=== PATIENT | female | born 1995 | race Two or more races ===

== ENCOUNTER → 2023-08-17 | Outpatient (CLI) | payer MEDICAID ==
[2023-08-17 13:26] LABS: Amphetamine Screen, Urine Neg (NEGATIVE); Barbiturate Scree,Urine Neg (NEGATIVE); Benzodiazephine Screen, Urine Neg (NEGATIVE); Cannabinoid Screen, Urine Neg (NEGATIVE); Cocaine Screen, Urine Neg (NEGATIVE); Opiate Scree,Urine Neg (NEGATIVE); Phencyclidine Screen, Urine Neg (NEGATIVE)
== END | disposition home or self-care (01) ==
LOC: LAB 12:18
PROVIDERS: ATTEND Obstetrics & Gynecology
DX: Z34.80 Encounter for supervision of other normal pregnancy, unspecified trimester (principal); Z3A.00 Weeks of gestation of pregnancy not specified
CPT/HCPCS: 80307

== ENCOUNTER → 2023-10-12 | Outpatient (CLI) | payer MEDICAID ==
[2023-10-12 08:49] LABS: Basophils # (auto) 0 10 ^3/uL (0-0.2); Basophils % (auto) 0.7 % (0.0-2.0); Eosinophils # (auto) 0.2 10 ^3/uL (0-0.8); Eosinophils % (auto) 3.3 % (0.0-7.0); Hemoglobin 12.5 g/dL (12.2-16.2); Lymphocytes # (auto) 1.6 10 ^3/uL (0.4-5.4); Lymphocytes % (auto) 24.1 % (10.0-50.0); Mean Corpuscular Hemoglobin 32.2 pg (28.0-32.0); Mean Corpuscular Hgb Conc. 34.6 g/dL (32.0-36.0); Mean Corpuscular Volume 92.9 fL (80.0-100.0); Monocytes # (auto) 0.6 10 ^3/uL (0-1.3); Monocytes % (auto) 9.4 % (0.0-12.0); Neutrophils # (auto) 4.2 10 ^3/uL (1.6-8.6); Neutrophils % (auto) 62.5 % (37.0-80.0); Red Blood Cells 3.88 10^6/uL (4.0-5.20); Red Cell Distribution Width 13.5 % (11.8-14.3); White Blood Cell 6.7 10^3/uL (4.4-10.8)
== END | disposition home or self-care (01) ==
LOC: LAB 08:33
PROVIDERS: ATTEND Obstetrics & Gynecology
DX: Z34.80 Encounter for supervision of other normal pregnancy, unspecified trimester (principal)
CPT/HCPCS: 36415; 82951; 83036; 85025

== ENCOUNTER → 2023-11-26 | Outpatient (CLI) | payer MEDICAID ==
[2023-11-26 13:07] LABS: Basophils # (auto) 0.1 10 ^3/uL (0-0.2); Basophils % (auto) 0.6 % (0.0-2.0); Eosinophils # (auto) 0.2 10 ^3/uL (0-0.8); Hematocrit 37.8 % (36.0-46.0); Hemoglobin 13.6 g/dL (12.2-16.2); Lymphocytes # (auto) 1.5 10 ^3/uL (0.4-5.4); Lymphocytes % (auto) 15.5 % (10.0-50.0); Mean Corpuscular Hemoglobin 33.5 pg (28.0-32.0); Mean Corpuscular Hgb Conc. 35.9 g/dL (32.0-36.0); Mean Corpuscular Volume 93.2 fL (80.0-100.0); Monocytes # (auto) 0.8 10 ^3/uL (0-1.3); Monocytes % (auto) 7.9 % (0.0-12.0); Neutrophils # (auto) 7.1 10 ^3/uL (1.6-8.6); Platelet Count (auto) 236 10^3/uL (140-450); Red Blood Cells 4.05 10^6/uL (4.0-5.20); Red Cell Distribution Width 13.4 % (11.8-14.3); White Blood Cell 9.5 10^3/uL (4.4-10.8)
[2023-11-26 13:41] LABS: Albumin 4.2 g/dL (3.2-4.8); Alkaline Phosphatase 107 U/L (46-116); Anion Gap 4 (5-15); Aspartate Aminotransferase 9 U/L (13-40); BUN/Creatinine Ratio 10.4 (10.0-20.0); Blood Urea Nitrogen 5 mg/dL (9-23); Calcium 9.6 mg/dL (8.7-10.4); Carbon Dioxide 25 mmol/L (20-31); Chloride 106 mmol/L (98-107); Glucose 93 mg/dL (74-106); Sodium 135 mmol/L (136-145); Uric Acid 3.1 mg/dL (3.1-7.8)
[2023-11-26 13:42] LABS: Bilirubin, Total 0.4 mg/dL (0.2-1.0); Total Protein 6.7 g/dL (5.7-8.2)
[2023-11-26 13:46] LABS: Alanine Aminotransferase < 9 U/L (7-40)
== END | disposition home or self-care (01) ==
LOC: LAB 12:28
PROVIDERS: ATTEND Obstetrics & Gynecology
DX: Z34.00 Encounter for supervision of normal first pregnancy, unspecified trimester (principal); Z3A.00 Weeks of gestation of pregnancy not specified
CPT/HCPCS: 36415; 80053; 84550; 85025; 87086

== ENCOUNTER 2023-12-03 10:50 | Observation (INO) | payer MEDICAID ==
[2023-12-03 12:28] LABS: Basophils # (auto) 0 10 ^3/uL (0-0.2); Basophils % (auto) 0.5 % (0.0-2.0); Eosinophils # (auto) 0.1 10 ^3/uL (0-0.8); Eosinophils % (auto) 1.3 % (0.0-7.0); Hematocrit 36.1 % (36.0-46.0); Hemoglobin 12.9 g/dL (12.2-16.2); Lymphocytes # (auto) 1.5 10 ^3/uL (0.4-5.4); Lymphocytes % (auto) 17.7 % (10.0-50.0); Mean Corpuscular Hemoglobin 32.4 pg (28.0-32.0); Mean Corpuscular Hgb Conc. 35.7 g/dL (32.0-36.0); Mean Corpuscular Volume 90.7 fL (80.0-100.0); Monocytes # (auto) 0.7 10 ^3/uL (0-1.3); Monocytes % (auto) 8.5 % (0.0-12.0); Neutrophils # (auto) 6.1 10 ^3/uL (1.6-8.6); Platelet Count (auto) 248 10^3/uL (140-450); Red Blood Cells 3.98 10^6/uL (4.0-5.20); Red Cell Distribution Width 13.2 % (11.8-14.3); White Blood Cell 8.5 10^3/uL (4.4-10.8)
[2023-12-03 12:38] LABS: Alanine Aminotransferase 11 U/L (7-40); Alkaline Phosphatase 110 U/L (46-116); Anion Gap 9 (5-15); Aspartate Aminotransferase 8 U/L (13-40); BUN/Creatinine Ratio 17.9 (10.0-20.0); Bilirubin, Total 0.4 mg/dL (0.2-1.0); Blood Urea Nitrogen 7 mg/dL (9-23); Calcium 9.4 mg/dL (8.7-10.4); Carbon Dioxide 21 mmol/L (20-31); Chloride 107 mmol/L (98-107); Glucose 84 mg/dL (74-106); Potassium 3.7 mmol/L (3.5-5.1); Sodium 137 mmol/L (136-145); Total Protein 6.4 g/dL (5.7-8.2)
[2023-12-03 12:51] LABS: INR 0.94 (0.9-1.15); Partial Thromboplastin Time 25.9 SEC (24.5-34.5)
[2023-12-03 13:42] LABS: Uric Acid 3.4 mg/dL (3.1-7.8)
[2023-12-03 14:34] LABS: Urine Bacteria FEW /hpf (None Seen); Urine Blood Negative /uL (Negative); Urine Clarity Clear (Clear); Urine Color Yellow (Yellow); Urine Mucus FEW (None Seen); Urine Protein, UAD Negative (Negative); Urine Specific Gravity 1.019 (1.001-1.035); Urine Urobilinogen Normal (Negative); Urine WBC 1 /hpf (0 - 5); Urine pH 6.5 (5.0-9.0)
[2023-12-03 14:40] LABS: Protein, Urine 14.1 mg/dL (1-14)
[2023-12-03 14:43] LABS: Creatinine, Urine 97.63 mg/dL (30.0-125.0); Urine Protein/Creatinine Ratio 0.14
== END 2023-12-03 14:29 | disposition home or self-care (01) ==
LOC: LDRP 10:50 → UNDOADMOB 10:50 → LDRP 11:01
PROVIDERS: ADMIT Obstetrics & Gynecology; ATTEND Obstetrics & Gynecology
DX: O13.3 Gestational [pregnancy-induced] hypertension without significant proteinuria, third trimester (principal); O36.63X0 Maternal care for excessive fetal growth, third trimester, not applicable or unspecified; O21.0 Mild hyperemesis gravidarum; Z3A.32 32 weeks gestation of pregnancy
CPT/HCPCS: 36415; 59025; 76818; 80053; 81001; 81002; 82570; 84156; 84550; 85025; 85610; 85730; 94760; G0378

== ENCOUNTER 2023-12-10 09:20 | Observation (INO) | payer MEDICAID | END 2023-12-10 11:10 | disposition home or self-care (01) | LOC: LDRP 09:20 | PROVIDERS: ADMIT Obstetrics & Gynecology; ATTEND Obstetrics & Gynecology | DX: O36.63X0 Maternal care for excessive fetal growth, third trimester, not applicable or unspecified (principal); Z3A.33 33 weeks gestation of pregnancy | CPT/HCPCS: 59025; 76818; 81002; 94760; G0378 ==

== ENCOUNTER → 2024-01-05 | Outpatient (CLI) | payer MEDICAID ==
[2024-01-05 10:11] LABS: Basophils # (auto) 0 10 ^3/uL (0-0.2); Basophils % (auto) 0.5 % (0.0-2.0); Eosinophils # (auto) 0.1 10 ^3/uL (0-0.8); Eosinophils % (auto) 1.6 % (0.0-7.0); Hemoglobin 13.3 g/dL (12.2-16.2); Lymphocytes # (auto) 1.5 10 ^3/uL (0.4-5.4); Mean Corpuscular Volume 91.5 fL (80.0-100.0); Monocytes # (auto) 0.9 10 ^3/uL (0-1.3); Monocytes % (auto) 9.4 % (0.0-12.0); Neutrophils # (auto) 6.5 10 ^3/uL (1.6-8.6); Neutrophils % (auto) 71.5 % (37.0-80.0); Nucleated Red Blood Cells % 0.1 %; Platelet Count (auto) 243 10^3/uL (140-450); Red Blood Cells 4.15 10^6/uL (4.0-5.20); Red Cell Distribution Width 13.2 % (11.8-14.3); White Blood Cell 9.1 10^3/uL (4.4-10.8)
[2024-01-06 06:06] LABS: RPR Non Reactive (Non Reactive)
== END | disposition home or self-care (01) ==
LOC: LAB 09:16
PROVIDERS: ATTEND Obstetrics & Gynecology
DX: Z11.3 Encounter for screening for infections with a predominantly sexual mode of transmission (principal); Z72.51 High risk heterosexual behavior
CPT/HCPCS: 36415; 85025; 86592

== ENCOUNTER 2024-01-28 09:40 | Observation (INO) | payer MEDICAID ==
[2024-01-28] MEDS ORDERED: PREN-96 PO (10:26)
--- NOTE | 2024-01-28 10:32 | DVH ---
BIOPHYSICAL PROFILE HISTORY: Term, Macro Comparison Study: Biophysical profile on 12/10/2023 TECHNIQUE: Multiple real-time grayscale sonographic images through the gravid uterus of the fetus wi th duplex Doppler color flow and M-mode spectral analysis FINDINGS: BIOPHYSICAL PROFILE: breathing score: 2 movement score: 2 tone score: 2 Quantitative BRIAN score: 2 (BRIAN: 8.5 Cm.). There are low level echoes noted within the amniotic flu id. Total score: 8 The visualized cervix is unremarkable. Single live fetus in cephalic presentation. heart rate 135 beats per minute. Anterior placenta without previa or abruption IMPRESSION: 1. Biophysical profile score: 8/8 2. There is internal debris within the amniotic fluid.
--- NOTE | 2024-01-28 13:14 | DVHDS2 ---
Physician Discharge Progress N Final Diagnosis: POSTDATES Operations or Procedures: Operations or Procedures NST,SONO Other Interventions Other Interventions RFUSES TO GET INDUCED Condition on Discharge: Good Disposition: Home Discharge Instructions: Diet: Regular Activity: No Restrictions, As Tolerated Medications: NA Follow Up Care: Specialist: 2D Discharge Statement: "Patient was advised to return to the ER or call 911 if any headaches, dizziness, shortness of breath, chest pain, abdominal pain, bleeding, fevers, or worsening of medical condition. Patient was counseled about treatment plan, medications, possible side effects, patientverbalized understanding. All questions were answered to the best of my ability. This discharge took greater then 30 minutes in planning, reviewing documentation, counseling the patient, and discussing with other team members." JAMES TAY DO Jan 28, 2024 13:14
== END 2024-01-28 10:47 | disposition home or self-care (01) ==
LOC: LDRP 09:40
PROVIDERS: ADMIT Obstetrics & Gynecology; ATTEND Obstetrics & Gynecology
DX: O48.0 Post-term pregnancy (principal); O36.63X0 Maternal care for excessive fetal growth, third trimester, not applicable or unspecified; Z3A.40 40 weeks gestation of pregnancy; Z79.899 Other long term (current) drug therapy
CPT/HCPCS: 59025; 81002; 94760; G0378

== ENCOUNTER 2024-01-29 22:42 | Inpatient (IN) | payer MEDICAID ==
[~2024-01-29] VITALS: Ht 154.9 cm; Wt 77.6 kg
[~2024-01-29 22:42] MED LIST: PREN-96 PO
[2024-01-29] MEDS ORDERED: LIDOCAINE 2%HCL (LOCAL ANESTH.) INJ 20ML MDV IJ PRN (23:45)
[2024-01-29] MEDS ORDERED: NALBUPHINE HCL 10 MG/1ml INJECTION IV PRN (23:45)
[2024-01-30 00:02] LABS: Urine Bacteria None Seen /hpf (None Seen)
[2024-01-30 00:08] LABS: Basophils # (auto) 0 10 ^3/uL (0-0.2); Basophils % (auto) 0.5 % (0.0-2.0); Eosinophils # (auto) 0.2 10 ^3/uL (0-0.8); Eosinophils % (auto) 2.4 % (0.0-7.0); Hematocrit 39.5 % (36.0-46.0); Hemoglobin 13.7 g/dL (12.2-16.2); Lymphocytes # (auto) 2.1 10 ^3/uL (0.4-5.4); Lymphocytes % (auto) 22.5 % (10.0-50.0); Mean Corpuscular Hemoglobin 31.3 pg (28.0-32.0); Mean Corpuscular Hgb Conc. 34.6 g/dL (32.0-36.0); Mean Corpuscular Volume 90.4 fL (80.0-100.0); Monocytes % (auto) 10.9 % (0.0-12.0); Neutrophils # (auto) 5.8 10 ^3/uL (1.6-8.6); Neutrophils % (auto) 63.7 % (37.0-80.0); Nucleated Red Blood Cells % 0.1 %; Platelet Count (auto) 235 10^3/uL (140-450); Red Blood Cells 4.38 10^6/uL (4.0-5.20); Red Cell Distribution Width 13.2 % (11.8-14.3); White Blood Cell 9.2 10^3/uL (4.4-10.8)
[2024-01-30 00:13] LABS: Urine Blood Negative /uL (Negative); Urine Clarity Clear (Clear); Urine Color Yellow (Yellow); Urine Mucus FEW (None Seen); Urine Protein, UAD TRACE (Negative); Urine Specific Gravity 1.024 (1.001-1.035); Urine Urobilinogen 2 mg/dL (Negative); Urine WBC 3 /hpf (0 - 5); Urine pH 6.5 (5.0-9.0)
[2024-01-30 00:23] LABS: Cocaine Screen, Urine Neg (NEGATIVE)
[2024-01-30 00:24] LABS: Cannabinoid Screen, Urine Neg (NEGATIVE)
[2024-01-30 00:25] LABS: Amphetamine Screen, Urine Neg (NEGATIVE); Barbiturate Scree,Urine Neg (NEGATIVE); Benzodiazephine Screen, Urine Neg (NEGATIVE); Opiate Scree,Urine Neg (NEGATIVE); Phencyclidine Screen, Urine Neg (NEGATIVE)
[2024-01-30 00:27] LABS: Albumin 4.2 g/dL (3.2-4.8); Anion Gap 13 (5-15); BUN/Creatinine Ratio 13.6 (10.0-20.0); Bilirubin, Total 0.5 mg/dL (0.2-1.0); Chloride 106 mmol/L (98-107); Glucose 87 mg/dL (74-106); INR 0.92 (0.9-1.15); Partial Thromboplastin Time 27.2 SEC (24.5-34.5); Prothrombin Time 9.8 sec (9.3-11.8); Sodium 138 mmol/L (136-145); Total Protein 6.8 g/dL (5.7-8.2)
[2024-01-30 00:34] LABS: Alkaline Phosphatase 223 U/L (46-116); Aspartate Aminotransferase 10 U/L (13-40); Blood Urea Nitrogen 8 mg/dL (9-23); Carbon Dioxide 19 mmol/L (20-31)
[2024-01-30 00:46] LABS: Alanine Aminotransferase < 9 U/L (7-40)
[2024-01-30] MEDS: NALOXONE HCL 0.4 MG/ML VIAL IV ONE (01:00)
[2024-01-30] MEDS ORDERED: SODIUM CHLORIDE 0.9% 500 ML IV PRN (01:00)
[2024-01-30] MEDS: LACTATED RINGER'S 1,000 ML IV ONE (01:00)
[2024-01-30] MEDS: LIDOCAINE 1%-Mpf/Epinephrine 1:200,000 30ml VIAL IJ ONE (01:00)
[2024-01-30] MEDS: ePHEDrine SULFATE 50 MG/ML AMP IV ONE (01:00)
[2024-01-30] MEDS: LIDOCAINE HCL 2 %PF INJ 10ML AMP IJ ONE (01:00)
[2024-01-30] MEDS: LACTATED RINGER'S 500 ML IV ONE (01:00)
--- NOTE | 2024-01-30 02:19 | DVHHP2 ---
OB CC & HPI Date Date of Admission: Jan 29, 2024 Patient Identification: : 4 Para: 2 EDC: Jan 28, 2024 EGA: 40w 2d Chief Complaints: Reason for admission: rupture of membranes Admission Nurse Assessment Rev: Yes History of Present Complaints 28yo with IUP at 40w 2d presents to place and reports ROM at 2302, normal movements, no STOUT, epigastric pain or vision changes. Past Medical History Cardiac: No pertinent Hx Pulmonary: No pertinent Hx Central Nervous System: No pertinent Hx GI: No pertinent Hx Hemotology/Oncology: No pertinent Hx Hepatobiliary: No pertinent Hx Psychiatric: No pertinent Hx Musculoskeletal: No pertinent Hx Rheumotologic: No pertinent Hx Infectious Disease: No peritnent Hx ENT: No pertinent Hx Renal/: No pertinent Hx Endocrine: No pertinent Hx Dermatology: No pertinent Hx Past Surgical History: No pertinent Hx OB History OB History Care: Good Care Ultrasounds: Normal mid trimester US Obstetrical Complications: None Medical Complications: None 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 Allergies: Coded Allergies: NO KNOWN ALLERGIES (Unverified , 01/29/24) Home Meds Reported Medications Vit W/ Ferrous Fumara ( One Daily) Daily Tab, 1 TAB PO DAILY, #90 TAB 3 Refills 01/28/24 Current Medications Current Medications Medications (Trade) Dose Ordered Sig/Aaron Route PRN Reason Start Time Stop Time Status Last Admin Lactated Ringer's 1,000 ml @ 125 mls/hr Q8H IV 01/29/24 23:45 Nalbuphine HCl (Nubain) 10 mg Q4HP PRN IV MODERATE PAIN (4-6 PAIN SCALE) 01/29/24 23:45 Witch Freya (Tucks) 1 pad PRN PRN TOP PERINEAL AREA DISCOMFORT 01/29/24 23:45 Sodium Lauryl Sulfate (Phisoderm) 240 ml PRN PRN TOP PERINEAL AREA DISCOMFORT 01/29/24 23:45 Benzocaine (Dermoplast) 1 applic PRN PRN TOP PERINEAL AREA DISCOMFORT 01/29/24 23:45 Lidocaine HCl (Xylocaine) 20 ml ONCE PRN IJ PERINEAL AREA DISCOMFORT 01/29/24 23:45 Sodium Chloride 500 ml @ 500 mls/hr Q1H PRN IV FOR BP LESS THAN 90 01/30/24 01:00 Fentanyl/ Ropivacaine 200 ml @ 0 mls/hr UD EPI 01/30/24 01:00 02/01/24 00:59 Family & Social History Family/Social History Past Family/Social History: Non pertinent Blood Type: O+ Rubella: immune RPR/VDRL: Negative GBS Status: Positive HBsAG: Negative Review of Systems Constitutional: No symptom reported Ears, Nose, & Throat: No symptom reported Eyes: No symptom reported Pulmonary/Respiratory: No symptom reported Cardiovascular: No symptom reported Gastrointestinal: No symptom reported Genitourinary: No symptom reported Musculoskeletal: No symptom reported Skin: No symptom reported Psychiatric: No symptom reported Endocrine: No symptom reported Hemotologic/Lymphatic: No symptom reported OB Admission Exam Physical Exam HEENT: Eyes non-injected, Oropharynx Normal, Moist Membranes Heart: Rhythm Normal Lungs: Clear Abdomen: Gravid (non tender) Extremities: Normal Reflexes: Normal Cervical Dilatation: 3cm Effacement: 50% Station: -1 Membranes: Ruptured Amniotic Fluid: Clear Heart Rate: 120's Accelerations: Accelerations Present Decelerations: No Decelerations 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 Informed consent obtained. Risk of pain, bleeding, infection, discussed with the patient and partner Consent for possible blood transfusion obtained. All questions answered. Admit to Place for scheduled IOL Routine L&D admission orders Misoprostol per protocol EFM per policy & protocol Intrauterine resuscitation PRN Labor analgesia / anesthesia PRN Encourage frequent position change and ambulation to facilitate labor & descent Supportive Care Anticipate KVNG OVERTON CNM Jan 30, 2024 02:19
[2024-01-30] MEDS: CARBOPROST TROMETHAMINE 250 MCG/1ML VIAL IM ONE (03:15)
[2024-01-30] MEDS ORDERED: miSOPROStol 100 mcg TAB SL PRN (03:15)
[2024-01-30] MEDS ORDERED: METHYLERGONOVINE MALEATE 0.2 MG/ML AMP IM PRN (03:15)
[2024-01-30] MEDS ORDERED: diphenhdrAMINE HCL 50 MG/1 ML VL IV PRN (03:15)
[2024-01-30] MEDS ORDERED: miSOPROStol 100 mcg TAB PR PRN (03:15)
[2024-01-30] MEDS: PHISODERM TOP SOLN 240ML BTL TOP PRN (04:14)
[2024-01-30] MEDS: WITCH HAZEL-GLYCERIN PAD TOP PRN (04:14)
[2024-01-30] MEDS: DERMOPLAST 60ML BOTTLE TOP PRN (04:14)
--- NOTE | 2024-01-30 04:28 | DVHPN ---
DATE: 01/30/2024 SUBJECTIVE: The patient is admitted for labor. She had previously refused induction. OBJECTIVE: Pelvic exam appears to be 3 cm, 50%, -1, vertex presentation. Estimated weight of ____. IMPRESSION: * Intrauterine at 40+ weeks, in labor. * Suspect macrosomia. PLAN: The patient received 1 Cytotec. She also received epidural. The patient was advised of possibility of macrosomia, risk of shoulder dystocia, short term as well as long-term morbidity, mortality with macrosomic fetus. Option of primary discussed with the patient. The patient does not want primary option. She wants to continue with trial of vaginal delivery. Risks, complication fully discussed with the patient. The patient fully understands possibility of shoulder dystocia, Erb's palsy, other nerve damages, possibility of demise, hemorrhage discussed with the patient. The patient fully understands. All questions answered. The patient wishes to proceed with a trial of vaginal delivery. DO ALYCE Vance/TIERA/ESTELA TID: [id number] RECEIPT: [id number]
[2024-01-30] MEDS: ROPIVACAINE HCL 200 ML ONE (04:30)
[2024-01-30] MEDS: PENICILLIN G POT 5MIL/D5 50ML 50 ML IV ONE (04:34)
[2024-01-30] MEDS: LACTATED RINGER'S 1,000 ML IV SCH (04:34)
[2024-01-30] MEDS: LACT. RINGERS/OXYTOCIN 20UNITS 500 ML IV ONE ×2 (07:10→07:11)
[2024-01-30] MEDS: fentaNYL 400mCg/200ml W ROPIVA 200 ML EPI SCH (07:16)
--- NOTE | 2024-01-30 07:22 | LDN2 ---
Labor and Delivery Note Date 01/30/24 Age 28 4 Para 2 AB 1 EDC 01/28/24 EGA 40w 2d Diagnosis IUP at 40w 2d SROM clear GBS Carrier Vaginal Delivery: VTX (Compound presentation with vtx and posterior hand) Vacuum Assisted: No Placenta: Spontaneous Sex: Male Weight 3790g (8Lbs 6oz) Apgars 9 at one and five minutes of life Nuchal Cord Transected: No Amniotic Fluid: Clear Anesthesia Labor epidural Episiotomy: No Extension: Yes (1st degree erineal laceration) Repaired with 2-0 Vicryl suture EBL 200mL Labs Laboratory Tests 01/29/24 23:49: Hepatitis B Surface Antigen Negative Blood Bank 01/29/24 23:49: Blood Type O POSITIVE Complications None Conditions Mother and baby stable Primer Charger Somu Comments/Significant Med Marivel At 0638, 28yo, now delivered a viable Male infant by w/ 9 at one & five minutes of life. NATALIIA position. (Compound presentation with vtx and posterior hand) placed skin to skin on pt's chest. Cord clamped and cut after pulsation ceased. Cord blood sent. Intact 3-vessel cord placenta delivered spontaneously, [place]. Pitocin IV bolus started. Placenta sent to pathology. Patient had labor epidural anesthesia. Cervix/vagina inspected via SSE. Cervix intact. First degree vaginal laceration noted and was repaired with 2-0 vicryl suture. Fundus at U-2, firm, midline, and light lochia. QBL 200ml. VSS. Count correct x2. Rectal mucosa and sphincter intact. Rectal exam performed, WNL, not involved. Patient to care and baby to couplet care, both stable. . KVNG OVERTON CNM Jan 30, 2024 07:22
[2024-01-30] MEDS ORDERED: ACETAMINOPHEN 325 MG TAB PO PRN (08:00)
[2024-01-30] MEDS ORDERED: ONDANSETRON ODT 4 MG TAB PO PRN (08:00)
[2024-01-30] MEDS ORDERED: miSOPROStol 100 mcg TAB PO ONE (08:55)
[2024-01-30] MEDS: IBUPROFEN 600 MG TAB PO PRN (08:56)
[2024-01-30] MEDS ORDERED: DIPHENOXYLATE W/ATROPINE 2.5 MG TAB PO SCH (10:00)
[2024-01-30 10:45] VITALS: BP 116/56; PULSE 87; RESP 15; TEMP 98.8; O2SAT 97
[2024-01-30 15:22] VITALS: BP 109/66; PULSE 81; RESP 15; TEMP 98.4; O2SAT 97
[2024-01-30 19:30] VITALS: BP 115/57; PULSE 75; RESP 16; TEMP 98; O2SAT 97
[2024-01-30 23:15] VITALS: BP 111/56; PULSE 73; RESP 16; TEMP 97.7; O2SAT 99
[2024-01-31 03:15] VITALS: BP 106/58; PULSE 69; RESP 16; TEMP 97.6; O2SAT 98
--- NOTE | 2024-01-31 05:04 | DVHPN2 ---
Progress Note Date Seen: Jan 31, 2024 Subjective S: Lochia minimal. Regular diet well tolerated. Ambulating and voiding well w/o feeling dizzy or lightheaded. Perineal pain relieved with topical analgesics and cramps with oral analgesics. Passing flatus , had BM x1, PP. w/o problem. Plans to use OCP for contraception Desires and Requests to be discharged today vital signs Vital Sign Date Time Temp Pulse Resp B/P (MAP) Pulse Ox O2 Delivery O2 Flow Rate FiO2 01/30/24 23:15 97.7 73 16 111/56 (74) 99 97.7 01/30/24 19:30 Room Air Total Intake and Output 01/30/24 01/30/24 01/31/24 15:00 23:00 07:00 Intake Total 564.9 ml Output Total 800 ml 800 ml Balance -235.1 ml -800 ml medications Current Medications Medications Dose Ordered Sig/Aaron Route Start Time Stop Time Status Last Admin Dose Admin Nalbuphine HCl 10 mg Q4HP PRN IV 01/29/24 23:45 Cancel Witch Freya 1 pad PRN PRN TOP 01/29/24 23:45 01/30/24 04:14 1 PAD Sodium Lauryl Sulfate 240 ml PRN PRN TOP 01/29/24 23:45 01/30/24 04:14 240 ML Benzocaine 1 applic PRN PRN TOP 01/29/24 23:45 01/30/24 04:14 1 APPLIC Lidocaine HCl 20 ml ONCE PRN IJ 01/29/24 23:45 Cancel Sodium Chloride 500 ml @ 500 mls/hr Q1H PRN IV 01/30/24 01:00 Cancel Diphenhydramine HCl 50 mg Q4HP PRN IV 01/30/24 03:15 Cancel Methylergonovine Maleate 0.2 mg Q8HP PRN IM 01/30/24 03:15 02/01/24 03:14 Cancel Misoprostol 200 mcg ONCE PRN SL 01/30/24 03:15 Cancel Misoprostol 600 mcg ONCE PRN MT 01/30/24 03:15 Cancel Diphenoxylate HCl/ Atropine 5 mg Q12HR PO 01/30/24 10:00 Cancel Ibuprofen 600 mg Q6HP PRN PO 01/30/24 08:00 01/30/24 19:46 600 MG Acetaminophen 650 mg Q4HP PRN PO 01/30/24 08:00 Ondansetron HCl 4 mg Q4HPRN PRN PO 01/30/24 08:00 laboratory and microbiology Laboratory Tests 01/29/24 23:49 Test 01/29/24 23:49 Range/Units Serum Glucose 87 74-106 mg/dL Objective A&O x3 NAD. Afebrile, VSS Chest: heart and lung sounds normal. Breasts: Nipples intact w/o cracks or soreness Abdomen: normal BS, soft, non-tender, no rebound or guarding, fundus firm @ U- 1, Perineum:- no edema, or erythema,laceration site with sutures intact, edges in good approximation. Extremities: no edema or tenderness Lochia - minimal Assessment/Plan 28yo now ppd#1 s/p doing well. Blood Type: O Rh: Positive Rubella: Immune Pain control with oral medications Bowel regimen: Increase fluid intake and fiber in diet, Laxative PRN Discharge plan: May discharge home later today if condition remains stable Plan discussed with: Patient, Spouse BROOKLYNNKVNG Gracia JAUREGUI Jan 31, 2024 05:04
--- NOTE | 2024-01-31 05:08 | DVHDS2 ---
Obstetrics Discharge Summary Obstetrics Discharge Summary Date of Admission: Jan 29, 2024 Date of Discharge: Jan 31, 2024 Reason For Admission: Onset of Labor, Others (SROM) Procedures: None Intrapartum Procedures: Spontaneous vaginal deliv Procedures: None Operative Complicat: None Discharge Diagnosis: Term -Delivered Discharge Information: Activity (Unrestricted. Advance as tolerated. No heavy lifting, pushing or straining. Pelvic rest x 6weeks), Diet (Routine regular diet rich in fiber, protein, iron and vitamin C with adequate fluid intake.), Medications (Ibuprofen 600mg every 6 hours as needed for pain. Continue Vitamin ), Instructions ( self care instructions given. emergency signs and symptoms including pre-eclampsia precautions and signs of PPD reviewed with patient. Follow up with OB Provider in 1 week), Discharge to (Home) KVNG OVERTON CNM Jan 31, 2024 05:08
[2024-01-31 08:28] VITALS: BP 110/66; PULSE 84; RESP 18; TEMP 97.7; O2SAT 98
[2024-01-31 11:30] VITALS: TEMP 98
[2024-01-31 12:00] VITALS: TEMP 98
== END 2024-01-31 12:25 | disposition home or self-care (01) | DRG 560 ==
LOC: LDRP 22:42 → OBSVTOIN 23:30 → LDRP 23:34
PROVIDERS: ADMIT Obstetrics & Gynecology; ATTEND Obstetrics & Gynecology
PROC: 10E0XZZ Delivery of Products of Conception, External Approach (ICD-10-PCS; principal; 2024-01-30)
PROC: 0HQ9XZZ Repair Perineum Skin, External Approach (ICD-10-PCS; 2024-01-30)
PROC: 3E0R3BZ Introduction of Anesthetic Agent into Spinal Canal, Percutaneous Approach (ICD-10-PCS; 2024-01-30)
PROC: 00HU33Z Insertion of Infusion Device into Spinal Canal, Percutaneous Approach (ICD-10-PCS; 2024-01-30)
DX: O48.0 Post-term pregnancy (principal); Z37.0 Single live birth; O32.6XX0 Maternal care for compound presentation, not applicable or unspecified; O99.824 Streptococcus B carrier state complicating childbirth; O70.0 First degree perineal laceration during delivery; Z3A.40 40 weeks gestation of pregnancy; O42.02 Full-term premature rupture of membranes, onset of labor within 24 hours of rupture
CPT/HCPCS: 36415; 59409; 62282; 80053; 80307; 81001; 85025; 85610; 85730; 86592; 86780; 86803; 86850; 86900; 86901; 87340; 94760; 94762; 96360; 96361; 96365; G0378; J2540; J2590